=== PATIENT | female | born 1975 | race Caucasian/White ===

== ENCOUNTER 2020-12-12 12:36 | Emergency (ER) | payer BC ==
[2020-12-12 12:50] VITALS: BP 109/78; PULSE 107; TEMP 98; BMI 22.1
[2020-12-12] MEDS ORDERED: CASIRIVIMAB/IMDEVIMAB 10 ML in SODIUM CHLORIDE 100 ML IVPB ONE (13:09)
== END 2020-12-12 15:42 | disposition home or self-care (01) ==
LOC: JER 12:36 → JCOVINFU 12:36
DX: U07.1 COVID-19 (principal)
CPT/HCPCS: 99284-25; Q0240